=== PATIENT | male | born 2000 | race Caucasian/White ===

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

== ENCOUNTER 2020-08-18 10:41 | Outpatient (RCR) | payer OTHER ==
[~2020-08-18 10:41] MED LIST changes: +BACTRIM DS 8001 TAB PO
== END 2020-11-16 | disposition home or self-care (01) ==
LOC: WSOH
DX: S00.83XA Contusion of other part of head, initial encounter (principal); S06.0X0A Concussion without loss of consciousness, initial encounter; Y99.0 Civilian activity done for income or pay